=== PATIENT | female | born 1985 | race Caucasian/White ===

== ENCOUNTER 2019-05-12 18:08 | Emergency (ER) | payer OTHER ==
[~2019-05-12] VITALS: Ht 180.3 cm; Wt 133.8 kg
--- NOTE | 2019-05-13 15:56 | EKG ---
[facility] [address] [facility] [place], [place] [address] Signed Sinus tachycardia Low voltage QRS Borderline ECG No previous ECGs available Confirmed by ALEXIS MORE DO ([id number]) on 05/13/2019 3:56:17 PM Electronically Signed By: ALEXIS MORE DO 05/13/19 1556 PATIENT NAME: AVILA MOELLER Electrocardiogram DATE OF : 89 PHYSICIAN: ALEXIS MORE DO REPORT #: [id number] REPORT IS CONFIDENTIAL AND NOT TO BE RELEASED WITHOUT AUTHORIZATION
== END 2019-05-12 20:18 | disposition home or self-care (01) ==
LOC: ED 18:08
DX: R07.9 Chest pain, unspecified (principal); Z87.891 Personal history of nicotine dependence
CPT/HCPCS: 71046; 80053; 84484; 85025; 93005; 93010; 99285-25